=== PATIENT | female | born 1985 | race Caucasian/White ===

== ENCOUNTER 2018-03-06 00:50 | Emergency (ER) | payer MEDICAID ==
[~2018-03-06] VITALS: Ht 152.4 cm; Wt 58.9 kg
[2018-03-06 00:52] VITALS: Ht 152.4 cm; Wt 58.9 kg
[2018-03-06] MEDS ORDERED: IPRATROPIUM (NEB) 0.5 MG/2.5 ML AMP NEB STA (01:15)
[2018-03-06] MEDS ORDERED: ALBUTEROL 0.083% (NEB) 2.5 MG/3 ML AMP NEB STA (01:15)
[2018-03-06] MEDS ORDERED: ALBU18HF INHALATION (02:25)
--- NOTE | 2018-03-06 02:42 | ERD ---
ER Documentation Chief Complaint Chief Complaint cp non radiating, hurts more when she breathes. 21wks . +cough HPI Is a 33-year-old female checked in with cough that is causing some mild chest pain only when she coughs. Denies shortness of breath nausea vomiting or chills. Cough is mildly productive. Is been going on for 2 days. Chest pain is only with cough and is mild. ROS All systems reviewed and are negative except as per history of present illness. Medications Home Meds Active Scripts Albuterol Sulfate* (Ventolin HFA*) 18 Gm Hfa.aer.ad, 2 PUFF INHALATION Q4H, #1 INHALER Prov:ABIGAIL [place]ERETT. 03/06/18 Allergies Allergies: Coded Allergies: No Known Drug Allergy (Verified Allergy, Unknown, 03/06/18) Physical Exam Vitals Vital Signs Date Temp Pulse Resp B/P (MAP) Pulse Ox O2 O2 Flow FiO2 Time Delivery Rate 03/06/18 70 18 100 21 01:24 03/06/18 97.2 80 20 103/56 98 00:52 (72) Physical Exam Const: No acute distress Head: Atraumatic Eyes: Normal Conjunctiva ENT: Normal External Ears, Nose and Mouth. Neck: Full range of motion. No meningismus. Resp: Scattered rhonchi bilaterally Cardio: Regular rate and rhythm, no murmurs Abd: Soft, non tender, non distended. Normal bowel sounds Skin: No petechiae or rashes Back: No midline or flank tenderness Ext: No cyanosis, or edema Neur: Awake and alert Psych: Normal Mood and Affect Results 24 hrs Current Medications Medications Dose Sig/Jessica Start Time Status Last (Trade) Ordered Route PRN Stop Time Admin Dose Reason Admin Albuterol 5 mg ONCE STAT 03/06/18 DC 03/06/18 (Proventil NEB 01:15 03/06/18 01:23 0.083% (Neb)) 01:16 Ipratropium 0.5 mg ONCE STAT 03/06/18 DC 03/06/18 [place] NEB 01:15 03/06/18 01:23 (Atrovent 01:16 0.02% (Neb)) Procedures/MDM Patient's respiratory status has stabilized while in the department and is appropriate for outpatient work up. Exam and work up not consistent w/ impending respiratory failure or cardiovascular collapse. Symptom allergy consistent with viral bronchitis. Patient will be discharged home with albuterol inhaler. Advised follow-up PCP. Return for worsening symptoms. Departure Diagnosis: Primary Impression: Viral bronchitis Additional Impression: Weeks of gestation: unspecified Qualified Codes: Z34.90 - Encounter for supervision of normal , unspecified, unspecified trimester Condition: Stable Patient Instructions: Bronchitis With Wheezing (Adult) ABIGAIL EVERETT Mar 06, 2018 02:42
[2018-03-06 02:50] VITALS: BP 108/60; PULSE 95; RESP 16
[2018-04-03] MEDS ORDERED: PREN-93 PO (14:20)
== END 2018-03-06 02:51 | disposition home or self-care (01) ==
LOC: E/R 00:50
DX: O99.512 Diseases of the respiratory system complicating pregnancy, second trimester (principal); J20.8 Acute bronchitis due to other specified organisms; Z3A.21 21 weeks gestation of pregnancy
CPT/HCPCS: 93005; 94664; Z7502; Z7610

== ENCOUNTER 2018-04-14 11:04 | Outpatient (CLI) | payer MEDICAID ==
[~2018-04-14] VITALS: Ht 154.9 cm; Wt 61.5 kg
[~2018-04-14 11:04] MED LIST: PREN-93 PO
[2018-04-14 11:49] VITALS: BP 109/66; PULSE 71; RESP 18; Ht 154.9 cm; Wt 61.5 kg
--- NOTE | 2018-04-14 14:11 | PN ---
Triage Information Date/Time Reason for visit: Cold symptoms Weeks of Gestation 26+ /Para 1/0 Diabetes: none Hypertention: none Objective Vital Signs Date Temp Pulse Resp B/P (MAP) Pulse Ox O2 O2 Flow FiO2 Time Delivery Rate 04/14/18 98.6 71 18 109/66 Room Air 11:49 (80) Heart Rate: 140's Disposition: Discharge Assessment/Plan CXL 4cm Ultrasound WNL Precautions discussed Questions answered Follow up with provider HERMAN NUNES M.D. Apr 14, 2018 14:11
--- NOTE | 2018-04-14 14:24 | TRIAGE ---
OB Triage Datetime Report Generated by CPN: 04/14/2018 14:24 Datetime: 04/14/2018 14:00 Stage of : OB Triage Maternal Assessment Level of Consciousness: Fully Conscious Labor Evaluation Frequency: NONE Monitor Mode: External Resting Tone [place]: Relaxed Heart Rate FHR Baseline Rate: 135 Monitor Mode: External US Variability: Moderate 6-25 bpm Accelerations: 15X15 Decelerations: Variable Pain Assessment Pain Scale: 0 Pain Goal: 3 Vaginal Exam Membrane Status: Intact Vaginal Bleeding: None Datetime: 04/14/2018 13:00 Stage of : OB Triage Maternal Assessment Level of Consciousness: Fully Conscious Labor Evaluation Frequency: OCCASIONAL Monitor Mode: External Duration (sec)2399: 30-50 Quality: Mild Resting Tone [place]: Relaxed Heart Rate FHR Baseline Rate: 135 Monitor Mode: External US Variability: Moderate 6-25 bpm Accelerations: 15X15 Decelerations: Variable Pain Assessment Pain Scale: 0 Pain Goal: 3 Vaginal Exam Membrane Status: Intact Vaginal Bleeding: None Datetime: 04/14/2018 11:46 Assessment Type: Triage Maternal Assessment Level of Consciousness: Fully Conscious DTR's/Clonus: DTRs 2+; No Clonus Headache: Denies Blurred Vision: No Respiratory Effort: Unlabored; Regular Rhythm; Equal Expansion Breath Sounds, Left: Clear and Equal Breath Sounds, Right: Clear and Equal Nausea/Vomiting: Denies RUQ Epigastric Pain: Denies Lower Extremities Edema: None Degree: None Upper Extremities Edema: None Degree: None Facial Edema: None Fall Risk Assessment History of Falling: (0) No Secondary Diagnosis: (0) No Ambulatory Aid: (0) Bedrest/Nurse Assist IV Therapy: (0) No Gait: (0) Normal/Bedrest/Immobile Mental Status: (0) Oriented to Own Ability Fall Score: 0 Fall Risk Score Definition: No Risk: No action required Datetime: 04/14/2018 11:45 Time of Arrival: 04/14/2018 11:00 EGA: 26.5 Arrived By: Ambulatory Arrived From: Home Chief Complaint: pt. here c/o cold symptoms Movement: Present Contractions: Denies/Absent Rupture of Membranes: Denies Vaginal Bleeding: None Vaginal Discharge: Denies Recent Sexual Intercouse: Denies Abdominal Trauma: Not Applicable Patient Complaints: None Time Provider Notified: 04/14/2018 12:09 Provider Notified: eshaghian Initial Plan: EFM/MARINO/CVL Datetime: 04/14/2018 11:44 Monitor Mode: External Monitor Mode: External US Datetime: 04/03/2018 15:15 Stage of : OB Triage Maternal Assessment Level of Consciousness: Fully Conscious Labor Evaluation Frequency: 2UC/HR Monitor Mode: External Duration (sec)2399: 40-80 Quality: Mild Resting Tone [place]: Relaxed Heart Rate FHR Baseline Rate: 135 Monitor Mode: External US Variability: Moderate 6-25 bpm Accelerations: 15X15 Decelerations: None Category: Category I Pain Assessment Pain Scale: 0 Pain Goal: 3 Vaginal Exam Membrane Status: Intact Vaginal Bleeding: None Datetime: 04/03/2018 14:16 Fall Score: 0 Fall Risk Score Definition: No Risk: No action required Datetime: 04/03/2018 14:15 EGA: 25.1
[2018-04-14] MEDS ORDERED: FLUT9.9S NASAL (15:37)
== END 2018-04-14 14:20 | disposition home or self-care (01) ==
LOC: OBT 11:04 → L-D 11:05 → OBT 14:20
PROVIDERS: ATTEND Obstetrics & Gynecology
DX: O26.892 Other specified pregnancy related conditions, second trimester (principal); Z3A.26 26 weeks gestation of pregnancy; J00 Acute nasopharyngitis [common cold]
CPT/HCPCS: 76815; 76817; Z7500; G0463

== ENCOUNTER 2018-04-14 14:25 | Emergency (ER) | payer MEDICAID ==
[~2018-04-14] VITALS: Ht 154.9 cm; Wt 61.4 kg
[2018-04-14 14:29] VITALS: BP 111/59; PULSE 71; RESP 16; Ht 154.9 cm; Wt 61.4 kg
--- NOTE | 2018-04-14 15:36 | ERD ---
ER Documentation Chief Complaint Chief Complaint pt is bib family with flu symptoms since yest, 26 wks preg, cleared by OB HPI 33-year-old female in her 26-week of presents with complaint of body aches, sore throat, congestion, runny nose, since yesterday. Patient denies fevers, chest pain, abdominal pain, shortness of breath, nausea, vomiting, diarrhea, spotting, drooling, trismus. States she is not taking any treatments. Symptoms are constant. Denies past medical history. Denies allergies. Denies medications. Denies surgeries. Denies alcohol, tobacco, drug use. Up to date on vaccines. ROS All systems reviewed and are negative except as per history of present illness. Medications Home Meds Active Scripts Fluticasone Propionate (Flonase Allergy Relief) 9.9 Ml [place].susp, 2 SPRAY NASAL BID for congestion, #1 BOTTLE TO EACH NOSTRIL Prov:ABIGAIL LOBO 04/14/18 Reported Medications Vit No.124/Iron/FA ( Vitamin Tablet) 1 Each Tablet, 1 EACH PO DAILY, TAB 04/03/18 Allergies Allergies: Coded Allergies: No Known Drug Allergy (Verified Allergy, Unknown, 03/06/18) PMhx/Soc History of Surgery: No Anesthesia Reaction: No Hx Neurological Disorder: No Hx Respiratory Disorders: No Hx Cardiac Disorders: No Hx Psychiatric Problems: No Hx Miscellaneous Medical Probl: No Hx Alcohol Use: No Hx Substance Use: No Hx Tobacco Use: No Smoking Status: Never smoker FmHx Family History: No diabetes, No coronary disease, No other Physical Exam Vitals Vital Signs Date Temp Pulse Resp B/P (MAP) Pulse Ox O2 O2 Flow FiO2 Time Delivery Rate 04/14/18 98.5 71 16 111/59 98 14:29 (76) Physical Exam General: Well developed, well nourished. No acute distress. Head: Atraumatic. No sinus tenderness to palpation. Eyes: PERRLA. EOM's intact. No icterus, lesions, injection, or edema. Ears: Auricles nontender, with no erythema, lesions, or masses bilaterally. TMs pearly lopez with + cone of light and no bulging or fluid lines bilaterally. Auditory canal patent with no discharge or impaction bilaterally. Landmarks appreciated bilaterally. Throat: No tonsillar erythema, edema, or exudates noted bilaterally. No masses, lesions, or abscesses noted. Uvula midline. Airway patent. Mouth: Mucus membranes moist. No drooling, ulcers, bleeding, or lesions, noted. Neck: No lymphadenopathy noted. Tracheal midline, no goiter or nodules noted. No JVD. Heart: RR w/o murmur, rubs, or gallops. Lungs: Clear to auscultation bilaterally w/o wheezes, crackles, rhonchi. Symmetric rise and fall. Equal breath sounds. Abdomen: Soft, nontender, with no rigidity or guarding noted. No masses, lesions, or ecchymoses. Normoactive bowel sounds. No McBurney's point tenderness. Patient ambulatory. No tenderness to palpation in splenic area or splenomegaly. No CVA tenderness. Psych: Normal mood and affect. Procedures/MDM ER Course: Influenza negative MDM: 33-year-old female in her 26-week of presents with complaint of body aches, sore throat, congestion, runny nose, since yesterday. Patient denies fevers, chest pain, abdominal pain, shortness of breath, nausea, vomiting, diarrhea, spotting, drooling, trismus. States she is not taking any treatments. Symptoms are constant. I have low suspicion for strep throat based on history and exam findings, as well as patient not meeting centor criteria for rapid strep testing. I have low suspicion for bacterial sinusitis. I have low suspicion for pneumonia, tuberculosis, meningitis, pneumothorax, PE, acute heart failure or other life threatening etiology based on patient history and exam findings. Most likely etiology is viral URI and no further tests are necessary. Patient given rx for Flonase. Patient advised to rest and stay well hydrated. Patient discharged with strict ER precautions. Patient advised to follow up with PMD. All questions answered at discharge. Departure Diagnosis: Primary Impression: Upper respiratory infection URI type: unspecified viral URI Qualified Codes: J06.9 - Acute upper respiratory infection, unspecified Condition: ABIGAIL [place] Apr 14, 2018 15:36
[2018-04-14] MEDS ORDERED: FLUT9.9S NASAL (15:37)
== END 2018-04-14 16:28 | disposition home or self-care (01) ==
LOC: FTE 14:25
DX: O99.512 Diseases of the respiratory system complicating pregnancy, second trimester (principal); J06.9 Acute upper respiratory infection, unspecified; Z3A.26 26 weeks gestation of pregnancy
CPT/HCPCS: 87400; Z7502; 99283